=== PATIENT | female | born 1960 | race Hispanic/Latino ===

== ENCOUNTER 2017-05-13 23:29 | Emergency (ER) | payer OTHER ==
[2017-05-14 00:03] LABS: Bilirubin Negative (Negative); Blood, Urine Negative (Negative); Glucose, Urine (Dipstick) 500 mg/dL (Negative); Ketone, Urine Trace mg/dL (Negative); Nitrite Negative (Negative); Protein, Urine (Dipstick) Trace mg/dL (Neg-Trace)
[2017-05-14 00:32] LABS: #Eosinphils 0.1 thou/uL (0.0-0.7); #Lymphocytes 0.8 thou/uL (1.20-3.40); #Monocytes 0.4 thou/uL (0.11-0.59); #Neutrophils 6.3 thou/uL (1.40-6.50); %Basophils 0.2 % (0.0-1.0); %Eosinophils 1.3 % (0.0-10.0); %Lymphocytes 10.6 % (21.0-51.0); %Monocytes 5.7 % (0.0-10.0); Hematocrit 43.6 % (36.0-47.0); Mean Platelet Volume 8.8 fL (7.4-10.4); Red Blood Cell (RBC) Count 4.77 mill/uL (4.20-5.40); White Blood Cell (WBC) Count 7.7 thou/uL (4.8-10.8)
[2017-05-14] MEDS ORDERED: Ondansetron HCl/PF 4 MG/2 ML Vial ONE (00:32)
[2017-05-14 00:34] LABS: ALT (SGPT) 22 U/L (8-55); AST (SGOT) 18 U/L (5-34); Alkaline Phosphatase 151 U/L (40-150); Anion Gap 14 mmol/L (10-20); BUN (Urea Nitrogen) 13 mg/dL (9.8-20.1); Bilirubin, Total 0.5 mg/dL (0.2-1.2); Calc. Creatinine Clearance 0 mL/min (70-130); Calcium 8.6 mg/dL (7.8-10.44); Carbon Dioxide 25 mmol/L (22-29); Chloride 99 mmol/L (98-107); Estimated GFR-MDRD Greater than 90; Globulin 2.9 g/dL (2.4-3.5); Protein, Total 6.6 g/dL (6.0-8.3)
== END 2017-05-14 01:42 | disposition home or self-care (01) ==
LOC: ERS 23:29
DX: R10.13 Epigastric pain (principal); R11.10 Vomiting, unspecified; E11.9 Type 2 diabetes mellitus without complications; K21.9 Gastro-esophageal reflux disease without esophagitis; I50.9 Heart failure, unspecified
CPT/HCPCS: 80053; 81003; 83690; 85025; 93005; 96361; 96374; J2405

== ENCOUNTER 2017-05-14 03:44 | Emergency (ER) | payer OTHER ==
[2017-05-14] MEDS ORDERED: Ketorolac Tromethamine 30 MG/ML VIAL ONE (04:21)
== END 2017-05-14 05:32 | disposition home or self-care (01) ==
LOC: ERS 03:44
DX: R11.2 Nausea with vomiting, unspecified (principal); R10.84 Generalized abdominal pain; K21.9 Gastro-esophageal reflux disease without esophagitis; I50.9 Heart failure, unspecified; E11.9 Type 2 diabetes mellitus without complications; Z79.899 Other long term (current) drug therapy
CPT/HCPCS: 96361; 96372; 96374; J1885

== ENCOUNTER 2017-07-01 06:21 | Emergency (ER) | payer OTHER ==
[2017-07-01 07:08] LABS: #Eosinphils 0.1 thou/uL (0.0-0.7); #Lymphocytes 1.9 thou/uL (1.20-3.40); #Monocytes 0.6 thou/uL (0.11-0.59); #Neutrophils 8.3 thou/uL (1.40-6.50); %Basophils 0.2 % (0.0-1.0); %Eosinophils 1.1 % (0.0-10.0); %Lymphocytes 17.5 % (21.0-51.0); %Monocytes 5.8 % (0.0-10.0); %Neutrophils 75.4 % (42.0-75.0); Hemoglobin 13.8 g/dL (12.0-16.0); Mean Corpuscular HGB CONC 33.2 g/dL (32.0-36.0); Mean Corpuscular Hemoglobin 29.9 pg (27.0-31.0); Mean Corpuscular Volume 90.1 fl (81.0-99.0); Mean Platelet Volume 8.4 fL (7.4-10.4); Platelet Count 242 thou/uL (130-400); RBC Distribution Width 12.6 % (11.5-14.5); Red Blood Cell (RBC) Count 4.61 mill/uL (4.20-5.40); White Blood Cell (WBC) Count 10.9 thou/uL (4.8-10.8)
[2017-07-01 07:15] LABS: ALT (SGPT) 15 U/L (8-55); AST (SGOT) 9 U/L (5-34); Albumin 3.7 g/dL (3.5-5.0); Alkaline Phosphatase 142 U/L (40-150); Anion Gap 13 mmol/L (10-20); BUN (Urea Nitrogen) 8 mg/dL (9.8-20.1); Bilirubin, Total 0.6 mg/dL (0.2-1.2); Calc. Creatinine Clearance 0 mL/min (70-130); Calcium 9.4 mg/dL (7.8-10.44); Carbon Dioxide 25 mmol/L (22-29); Chloride 100 mmol/L (98-107); Estimated GFR-MDRD 87; Globulin 3.5 g/dL (2.4-3.5); Glucose 363 mg/dL (70-105); Potassium 4.2 mmol/L (3.5-5.1); Protein, Total 7.2 g/dL (6.0-8.3); Sodium 134 mmol/L (136-145)
== END 2017-07-01 07:50 | disposition home or self-care (01) ==
LOC: ERS 06:21
DX: J11.1 Influenza due to unidentified influenza virus with other respiratory manifestations (principal); I50.9 Heart failure, unspecified; E11.9 Type 2 diabetes mellitus without complications; K21.9 Gastro-esophageal reflux disease without esophagitis; Z79.899 Other long term (current) drug therapy
CPT/HCPCS: 36415; 80053; 85025; 99284

== ENCOUNTER 2018-03-10 14:18 | Observation (INO) | payer OTHER ==
[2018-03-10] MEDS ORDERED: ISOVUE-370 76%-LOCM 1 ML ONE (14:42)
[2018-03-10 15:06] LABS: #Eosinphils 0.1 thou/uL (0.0-0.7); #Lymphocytes 0.6 thou/uL (1.20-3.40); #Monocytes 0.3 thou/uL (0.11-0.59); #Neutrophils 6.9 thou/uL (1.40-6.50); %Eosinophils 0.7 % (0.0-10.0); %Lymphocytes 7.7 % (21.0-51.0); %Neutrophils 87.7 % (42.0-75.0); Hemoglobin 15.2 g/dL (12.0-16.0); Mean Corpuscular HGB CONC 32.9 g/dL (32.0-36.0); Mean Corpuscular Hemoglobin 29.5 pg (27.0-31.0); Mean Corpuscular Volume 89.5 fL (78.0-98.0); Mean Platelet Volume 9.6 fL (7.4-10.4); Platelet Count 172 thou/uL (130-400); RBC Distribution Width 12.8 % (11.5-14.5); Red Blood Cell (RBC) Count 5.15 mill/uL (4.20-5.40); White Blood Cell (WBC) Count 7.8 thou/uL (4.8-10.8)
[2018-03-10 15:30] LABS: ALT (SGPT) 14 U/L (8-55); AST (SGOT) 12 U/L (5-34); Albumin 4.1 g/dL (3.5-5.0); Alkaline Phosphatase 139 U/L (40-150); Anion Gap 16 mmol/L (10-20); BUN (Urea Nitrogen) 10 mg/dL (9.8-20.1); Bilirubin, Total 0.7 mg/dL (0.2-1.2); Calc. Creatinine Clearance 0 mL/min (70-130); Calcium 8.7 mg/dL (7.8-10.44); Carbon Dioxide 21 mmol/L (22-29); Chloride 103 mmol/L (98-107); Estimated GFR-MDRD Greater than 90; Globulin 2.9 g/dL (2.4-3.5); Glucose 302 mg/dL (70-105); Potassium 4.2 mmol/L (3.5-5.1); Sodium 136 mmol/L (136-145)
[2018-03-10 15:33] LABS: CKMB 1.1 ng/mL (0-6.6); Troponin I Less than 0.010 ng/mL (< 0.028)
[2018-03-10] MEDS ORDERED: Morphine 4 MG/ML VIAL ONE ×2 (15:34→17:28)
[2018-03-10] MEDS ORDERED: Ondansetron HCl/PF 4 MG/2 ML Vial ONE ×2 (15:34→17:29)
--- NOTE | 2018-03-10 15:47 | RAD ---
PORTABLE CHEST: 03/10/2018 PROVIDED CLINICAL HISTORY: Nausea and vomiting. COMPARISON: 11/20/2016 FINDINGS: The cardiac and mediastinal silhouette are within normal limits. No focal consolidation, pleural flu id, or pneumothorax apparent. IMPRESSION: No evidence for an acute cardiopulmonary process. POS: [facility]
--- NOTE | 2018-03-10 15:56 | CT ---
CT CHEST AND ABDOMEN WITH IV CONTRAST: 03/10/2018 PROVIDED CLINICAL HISTORY: Nausea and vomiting and arm and leg pain. FINDINGS: There is no evidence for aortic dissection. The heart, pericardium, and great vessels demonstrate an unremarkable CT appearance for the phase of contrast in which the study was acquired. The lungs are free of suspicious opacity. The airway appears patent and of normal caliber. No evidence for thora cic lymph node enlargement. No pleural fluid or pneumothorax apparent. Diffuse fatty infiltration of the liver. Right adrenal myelolipoma. No bowel dilatation, inflammato ry fat stranding, free fluid, or free air apparent. Sigmoid colonic diverticulosis. Left inferior v entral abdominal hernia, containing nondilated small bowel and a wide neck, is again demonstrated. The osseous structures demonstrate no concerning osteoblastic or osteolytic lesions. IMPRESSION: No evidence for an acute process. Chronic findings as above. POS: [facility]
--- NOTE | 2018-03-10 18:29 | ULT ---
BILATERAL LOWER EXTREMITY VENOUS DOPPLER ULTRASOUND: HISTORY: Lower extremity burning sensation and edema. COMPARISON: None. TECHNIQUE: Real-time herndon-scale color Doppler and spectral analysis of the bilateral lower extremity venous syst em was performed. The common femoral, femoral, proximal portion of the greater saphenous, and the de ep femoral veins, as well as the popliteal and posterior tibial veins are interrogated. FINDINGS: Normal flow, augmentation, and compression. IMPRESSION: No deep venous thrombosis. POS: [facility]
[2018-03-10] MEDS ORDERED: Promethazine HCl 25 MG/ML VIAL ONE (18:57)
[2018-03-10] MEDS ORDERED: Acetaminophen 500 MG TAB ONE (18:57)
[2018-03-10 20:02] LABS: Troponin I Less than 0.010 ng/mL (< 0.028)
[2018-03-10] MEDS ORDERED: Ondansetron HCl/PF 4 MG/2 ML Vial IVP PRN (21:20)
[2018-03-10] MEDS ORDERED: Dextrose 50% Abboject 50 ML SYRINGE SLOW IVP PRN (21:43)
[2018-03-10] MEDS ORDERED: Dextrose 5% in Water 1,000 ML IV PRN (21:43)
[2018-03-11] MEDS: Acetaminophen 325 MG TAB PO PRN ×3 (02:57→18:54)
[2018-03-11 04:37] LABS: Hemoglobin A1c 11.7 % (4.0-6.0)
[2018-03-11 04:40] LABS: #Lymphocytes 0.7 thou/uL (1.20-3.40); #Monocytes 0.4 thou/uL (0.11-0.59); #Neutrophils 3.8 thou/uL (1.40-6.50); %Basophils 0.1 % (0.0-1.0); %Lymphocytes 13.5 % (21.0-51.0); %Monocytes 7.4 % (0.0-10.0); %Neutrophils 78.1 % (42.0-75.0); Hemoglobin 13.2 g/dL (12.0-16.0); Mean Corpuscular HGB CONC 34.1 g/dL (32.0-36.0); Mean Corpuscular Hemoglobin 30.7 pg (27.0-31.0); Mean Corpuscular Volume 89.9 fL (78.0-98.0); Mean Platelet Volume 9.1 fL (7.4-10.4); Platelet Count 148 thou/uL (130-400); RBC Distribution Width 12.9 % (11.5-14.5); Red Blood Cell (RBC) Count 4.29 mill/uL (4.20-5.40); White Blood Cell (WBC) Count 4.9 thou/uL (4.8-10.8)
[2018-03-11 04:51] LABS: Anion Gap 14 mmol/L (10-20); BUN (Urea Nitrogen) 7 mg/dL (9.8-20.1); Calc. Creatinine Clearance 200 mL/min (70-130); Calcium 8.2 mg/dL (7.8-10.44); Carbon Dioxide 20 mmol/L (22-29); Chloride 104 mmol/L (98-107); Estimated GFR-MDRD Greater than 90; Glucose 239 mg/dL (70-105); Potassium 3.7 mmol/L (3.5-5.1); Sodium 134 mmol/L (136-145)
[2018-03-11] MEDS: HumaLOG 300 UNITS/3 ML VIAL SC PRN ×3 (06:21→17:15)
[2018-03-11] MEDS ORDERED: Temazepam 15 MG CAP PO PRN (07:45)
[2018-03-11] MEDS ORDERED: HYDROcodone/Acetaminophen 5/325 mg Tablet PO PRN (07:45)
[2018-03-11] MEDS ORDERED: Diabetic Tussin 200 MG/10 ML UDCUP PO PRN (07:45)
[2018-03-11] MEDS ORDERED: Sodium Chloride 0.65% Nasal 44 ML BOT EA NARE PRN (07:45)
[2018-03-11] MEDS ORDERED: hydrALAZINE 20 MG/ML VIAL SLOW IVP PRN (07:45)
[2018-03-11] MEDS ORDERED: Metoclopramide HCl 10 MG/2 ML VIAL IVP PRN (07:45)
[2018-03-11] MEDS ORDERED: Loratadine 10 MG TAB PO PRN (07:45)
[2018-03-11] MEDS ORDERED: Artificial Tears 18 DROP/0.9 ML EA EYE PRN (07:45)
[2018-03-11] MEDS ORDERED: Senokot 8.6 MG TAB PO PRN (07:45)
[2018-03-11] MEDS ORDERED: Loperamide HCl 2 MG CAP PO PRN (07:45)
[2018-03-11] MEDS ORDERED: Eucerin (Mineral Oil/Petrolatum,White) 30 gm Jar TOP PRN (07:45)
[2018-03-11] MEDS ORDERED: Chloraseptic Spray 180 ml Bottle PO PRN (07:45)
[2018-03-11] MEDS ORDERED: Mag-Al 1200 mg/1200 mg/30 ML UDCUP PO PRN (07:45)
[2018-03-11] MEDS ORDERED: Milk Of Magnesia 30 ML UDCUP PO PRN (07:45)
[2018-03-11] MEDS: Enoxaparin Sodium 40 MG/0.4 ML SYRINGE SC SCH (08:52)
[2018-03-11] MEDS: Famotidine/PF 20 mg/2ml Vial SLOW IVP SCH ×2 (08:53→19:50)
[2018-03-11] MEDS: Rosuvastatin 10 MG TAB PO SCH (08:53)
[2018-03-11] MEDS: Lisinopril 5 MG TAB PO SCH (08:54)
[2018-03-11] MEDS: Carvedilol 6.25 MG TAB PO SCH (08:54)
--- NOTE | 2018-03-11 10:18 | HP ---
PRIMARY CARE PHYSICIAN: José Aranda M.D. PRIMARY SENIOR ANALYTIC CONSULTANT: Jarett Atwood M.D. CODE STATUS: FULL CODE. TIME OF EVALUATION: 9:00 p.m. CHIEF COMPLAINT: Nausea and vomiting. HISTORY OF PRESENT ILLNESS: This is a 58 years old female patient with past medical history of multiple comorbidities including congestive heart failure, diabetes type 2, GERD, came to the hospital after having severe uncontrolled nausea and vomiting that started since around 8:00 a.m., with no clear triggers , no alleviating factors, the patient also reported some epigastric pain with no specific radiation and also some associated left lower extremity pain; although that pain has been present for the past 3 weeks. She denies any chest pain, any cough, any sputum production. No alleviating factors with medications in the ER. REVIEW OF SYSTEMS: Constitutional: No fever. The patient feels occasionally hot flashes and chills, generalized weakness. Respiratory: No cough, sputum production or shortness of breath. Cardiovascular: No chest pain or palpitations. Gastrointestinal: Epigastric pain, nausea, vomiting. No diarrhea. INSPECTOR CIRCUITRY NEGATIVE: The patient reporting some headache, no neck stiffness. Not feeling lightheaded. Genitourinary: No burning with urination. Extremities: No leg swelling. Left lower extremity pain. All other systems were reviewed and are negative except for the findings as mentioned above. PAST MEDICAL HISTORY: As mentioned in the HPI. PAST SURGICAL HISTORY: Positive for pituitary tumor removal, diverticulitis, cholecystectomy, , hysterectomy, and lumpectomy. PSYCHIATRIC HISTORY: No psychiatric history. SOCIAL HISTORY: Lives with family at home. No smoking, no alcohol, no drugs. ALLERGIES: No known drug allergies. REPORTED MEDICATIONS: Crestor, carvedilol, furosemide, and lisinopril. PHYSICAL EXAMINATION: VITAL SIGNS: On presentation, blood pressure 146/84 with heart rate 96, respiratory rate was 20, temperature 99.1, pain was 10/10, oxygen saturation 97 on room air. GENERAL APPEARANCE: The patient is alert and oriented, in mild distress due to symptoms. HEENT: Eyes: Normal conjunctivae. Moist oral mucosa. Anicteric. NECK: No JVD. RESPIRATORY: Bilateral air entry. No rales or wheezes. Symmetric expansion. CARDIOVASCULAR: The patient has sinus tachycardia that is mild, in the one- teens, regular rhythm, sinus on the monitor. No murmurs, no gallop, no edema. ABDOMEN: Soft, mildly tender in the epigastric area. Normal bowel sounds. MUSCULOSKELETAL: Baseline range of motion and strength. No tenderness except for the left lower extremity. She has some tenderness in the entire limb with no swelling, no redness, mildly decreased range of motion due to that pain. SKIN: Warm and intact. No pallor, no rash or redness. Peripheral pulses are present. Capillary refill seems to be intact. NEUROLOGIC: Baseline sensory, no evidence of any new focal weakness. Baseline speech. Cranial nerves seem to be intact. PSYCHIATRIC: The patient is in good mood, no anxiety, oriented, and optimal judgment. IMAGING: EKG was reviewed. The patient has sinus tachycardia with left axis deviation, low voltage QRS, likely due to patient's obesity, ventricular rate was 108 with OR of 152, QRS 88, QT corrected 452. Radiology report, the chest x -ray was done. The patient had no evidence of any acute cardiopulmonary process. The CT dissection was done. The patient has no evidence of any acute process. DVT studies were negative. LABORATORY DATA: Reviewed. The patient has a white count of 7.8, hemoglobin 15.2, MCV 89.5, platelet count 172. Sodium 136, potassium 4.2, chloride 103, carbon dioxide 21, anion gap 16, BUN 10, creatinine 0.6, GFR greater than 90. Glucose 302, calcium 8.7, total bilirubin 0.7, AST 12, ALT 14, alkaline phosphatase 139. Troponin less than 0.010 x2. Serum total protein 7.0, albumin 4.1, globulin 2.9, albumin globulin ratio is 1.4. ASSESSMENT AND PLAN: The patient will be placed in the hospital with the following medical problem. 1. Severe nausea and vomiting, presented since 9.00 a.m., no clear etiology. The patient had uncontrolled diabetes, the differential most likely possibility is diabetic gastroparesis, we will treat symptomatically, lipase is pending. Pancreatitis could be a second possible etiology. CT abdomen did not show any inflammation of the pancreas, we will optimize diabetes control. Monitor the patient overnight, we will treat accordingly depending on workup result. 2. The patient is obese, advised to lose weight. 3. Headache that started this evening, there is no neck stiffness, no fever, no white count, no evidence to point to any infection of central nervous system at this point. We will send procalcitonin and we will adjust treatment accordingly. 4. Deep venous thrombosis prophylaxis. 5. Sinus tachycardia, likely secondary to acute physical distress, we will treat the pain, we will treat the nausea and vomiting, we will adjust the treatment as needed. 6. History of congestive heart failure, which is chronic, seems to be stable at this point. Reconcile home medications. 7. Gastroesophageal reflux disease, we will place the patient on Pepcid b.i.d. MTDD
--- NOTE | 2018-03-11 11:12 | PDOC.PN ---
- Subjective Encounter Start Date: 03/11/18 Encounter Start Time: 07:50 -: old records requested/rev Patient seen and examined. No new complaints. No overnight events - Objective Resuscitation Status: Resuscitation Status FULL:Full Resuscitation MAR Reviewed: Yes Vital Signs & Weight: Vital Signs (12 hours) Temp Pulse Resp BP BP Pulse Ox 03/11/18 07:46 98.2 F 84 18 123/64 94 L 03/11/18 02:57 91 18 140/67 95 Weight Weight 257 lb Result Diagrams: 03/11/18 03:34 03/11/18 03:34 Additional Labs: Accuchecks 03/11/18 03/11/18 03/10/18 10:44 06:17 22:26 POC Glucose 285 H 252 H 279 H Radiology Reviewed by me: Yes EKG Reviewed by me: Yes Phys Exam - Physical Examination Constitutional: NAD HEENT: PERRLA, moist MMs, sclera anicteric Neck: no JVD, supple Respiratory: no wheezing, no rales, no rhonchi Cardiovascular: RRR, no significant murmur, no rub Gastrointestinal: soft, non-tender, no distention, positive bowel sounds obesity+ Musculoskeletal: no edema, pulses present Neurological: non-focal, normal sensation, moves all 4 limbs Psychiatric: normal affect, A&O x 3 Skin: no rash, normal turgor Dx/Plan (1) Intractable nausea and vomiting Code(s): R11.2 - NAUSEA WITH VOMITING, UNSPECIFIED Status: Acute (2) Chronic stage c diastolic heart failure Code(s): I50.32 - CHRONIC DIASTOLIC (CONGESTIVE) HEART FAILURE Status: Chronic (3) Diabetes type 2, controlled Code(s): E11.9 - TYPE 2 DIABETES MELLITUS WITHOUT COMPLICATIONS Status: Chronic (4) Diabetic gastroparesis Code(s): E11.43 - TYPE 2 DIABETES W DIABETIC AUTONOMIC (POLY)NEUROPATHY; K31.84 - GASTROPARESIS Status: Chronic (5) Dyslipidemia Code(s): E78.5 - HYPERLIPIDEMIA, UNSPECIFIED Status: Chronic (6) Hypertension Code(s): I10 - ESSENTIAL (PRIMARY) HYPERTENSION Status: Chronic (7) Morbid obesity with BMI of 45.0-49.9, adult Code(s): E66.01 - MORBID (SEVERE) OBESITY DUE TO EXCESS CALORIES; Z68.42 - BODY MASS INDEX (BMI) 45.0-49.9, ADULT Status: Chronic - Plan cont current plan of care, plan discussed w/ family * add glyburide 5 mg po daily and metformin 1000 mg po bid * medication reviewed as below * symptomatic treatment * consult dietary for diabetic education * expecting discharge tomorrow morning. Review of Systems - Review of Systems Eyes: negative: Pain, Vision Change, Conjunctivae Inflammation, Eyelid Inflammation, Redness, Other ENT: negative: Ear Pain, Ear Discharge, Nose Pain, Nose Discharge, Nose Congestion, Mouth Pain, Mouth Swelling, Throat Pain, Throat Swelling, Other Respiratory: negative: Cough, Dry, Shortness of Breath, Hemoptysis, SOB with Excertion, Pleuritic Pain, Sputum, Wheezing Cardiovascular: negative: chest pain, palpitations, orthopnea, paroxysmal nocturnal dyspnea, edema, light headedness, other Gastrointestinal: negative: Nausea, Vomiting, Abdominal Pain, Diarrhea, Constipation, Melena, Hematochezia, Other Genitourinary: negative: Dysuria, Frequency, Incontinence, Hematuria, Retention , Other Musculoskeletal: negative: Neck Pain, Shoulder Pain, Arm Pain, Back Pain, Hand Pain, Leg Pain, Foot Pain, Other Skin: negative: Rash, Lesions, William, Bruising, Other - Medications/Allergies Allergies/Adverse Reactions: Allergies Allergy/AdvReac Type Severity Reaction Status Date / Time No Known Allergies Allergy Verified 03/10/18 22:16 Medications: Current Medications Acetaminophen (Tylenol) 650 mg PO Q4H PRN PRN Reason: Headache/Fever or Pain Last Admin: 03/11/18 09:10 Dose: 650 mg Hydrocodone Bitart/Acetaminophen ([place] 5/325) 1 tab PO Q4H PRN PRN Reason: Moderate Pain (4-6) Al Hydroxide/Mg Hydroxide (Maalox) 15 ml PO Q4H PRN PRN Reason: Heartburn or Indigestion Artificial Tears (Tears Naturale) 0 drop EA EYE PRN PRN PRN Reason: Dry Eyes Carvedilol (Coreg) 6.25 mg PO DAILY [facility] Last Admin: 03/11/18 08:54 Dose: 6.25 mg Dextrose/Water (Dextrose 50%) 25 gm SLOW IVP PRN PRN PRN Reason: Hypoglycemia Enoxaparin Sodium (Lovenox) 40 mg SC 0900 [facility] Last Admin: 03/11/18 08:52 Dose: 40 mg Famotidine (Pepcid) 20 mg SLOW IVP Q12HR [facility] Last Admin: 03/11/18 08:53 Dose: 20 mg Glucagon (Glucagon) 1 mg IM PRN PRN PRN Reason: Hypoglycemia Guaifenesin (Robitussin Sf) 200 mg PO Q4H PRN PRN Reason: Cough Hydralazine HCl (Apresoline) 10 mg SLOW IVP Q4H PRN PRN Reason: Systolic BP > 180 Dextrose/Water (D5w) 1,000 mls @ 0 mls/hr IV .Q0M PRN PRN Reason: Hypoglycemia Insulin Human Lispro (Humalog) 0 units SC .MILD SLIDING SCALE PRN PRN Reason: Mild Correctional Scale Last Admin: 03/11/18 06:21 Dose: 4 unit Lisinopril (Zestril) 5 mg PO DAILY [facility] Last Admin: 03/11/18 08:54 Dose: 5 mg Loperamide HCl (Imodium) 2 mg PO PRN PRN PRN Reason: Diarrhea/Loose Stools Loratadine (Claritin) 10 mg PO DAILYPRN PRN PRN Reason: Sinus Symptoms Magnesium Hydroxide (Milk Of Magnesium) 30 ml PO DAILYPRN PRN PRN Reason: Constipation Metoclopramide HCl (Reglan) 5 mg IVP Q4H PRN PRN Reason: Nausea Mineral Oil/White Petrolatum (Eucerin Cream) 0 gm TOP BIDPRN PRN PRN Reason: Dry Skin Ondansetron HCl (Zofran) 4 mg IVP Q6H PRN PRN Reason: Nausea/Vomiting Last Admin: 03/11/18 02:57 Dose: 4 mg Ondansetron HCl (Zofran Odt) 4 mg PO Q6H PRN PRN Reason: Nausea/Vomiting Phenol (Chloraseptic [place] 180 Ml Bot) 0 ml PO PRN PRN PRN Reason: Sore Throat Rosuvastatin Calcium (Crestor) 10 mg PO DAILY [facility] Last Admin: 03/11/18 08:53 Dose: 10 mg Senna (Senokot) 2 tab PO HSPRN PRN PRN Reason: Constipation Sodium Chloride ([place] Nasal [place] 0.65%) 0 ml EA NARE QIDPRN PRN PRN Reason: Nasal Congestion Temazepam (Restoril) 15 mg PO HSPRN PRN PRN Reason: Insomnia
[2018-03-11] MEDS ORDERED: glyBURIDE 5 MG TAB PO SCH (11:30)
[2018-03-11] MEDS: metFORMIN 500 MG TAB PO SCH (17:15)
[2018-03-11] MEDS: Ondansetron ODT 4 MG TAB PO PRN (18:54)
[2018-03-12 00:29] VITALS: TEMP 98.1
[2018-03-12] MEDS: Ondansetron ODT 4 MG TAB PO PRN (06:00)
[2018-03-12] MEDS: HumaLOG 300 UNITS/3 ML VIAL SC PRN (06:00)
[2018-03-12] MEDS ORDERED: glyBURIDE 5 MG TAB PO SCH (08:00)
[2018-03-12 08:06] VITALS: BP 138/67
[2018-03-12] MEDS: Carvedilol 6.25 MG TAB PO SCH (08:56)
[2018-03-12] MEDS: metFORMIN 500 MG TAB PO SCH (08:56)
[2018-03-12] MEDS: Lisinopril 5 MG TAB PO SCH (08:57)
[2018-03-12] MEDS: Enoxaparin Sodium 40 MG/0.4 ML SYRINGE SC SCH (08:57)
[2018-03-12] MEDS: Rosuvastatin 10 MG TAB PO SCH (08:57)
[2018-03-12] MEDS: Famotidine/PF 20 mg/2ml Vial SLOW IVP SCH (08:58)
--- NOTE | 2018-03-12 10:28 | DIS ---
DATE OF ADMISSION: 03/10/2018 DATE OF DISCHARGE: 03/12/2018 PRIMARY CARE PHYSICIAN: Dr. José Aranda. DISCHARGE DISPOSITION: Home. PRIMARY DISCHARGE DIAGNOSES: New onset diabetes type 2, nausea and vomiting. SECONDARY DISCHARGE DIAGNOSES: Chronic diastolic stage C heart failure, diabetes type 2, diabetic ga stroparesis, dyslipidemia, hypertension, morbid obesity with body mass index of 46. PRIMARY PROCEDURES/OPERATIONS: None. RADIOLOGICAL INVESTIGATION: Chest x-ray normal. CT dissection was negative. Ultrasound negative fo r any DVT. SIGNIFICANT LABORATORY DATA: WBC 4.9, hemoglobin 13.2, platelet 148. Hemoglobin A1c 11.7. Sodium 1 34, potassium 3.7, BUN 7, creatinine 0.57, calcium 8.2. LFT normal. Cardiac enzymes negative. Proc alcitonin 0.11 and lipase 19. DISCHARGE MEDICATIONS: Coreg 6.25 mg p.o. daily, Lasix 20 mg p.o. daily, lisinopril 5 mg p.o. daily, Crestor 10 mg p.o. daily, Zofran 4 mg q.6 hourly p.r.n., Pepcid 20 mg p.o. b.i.d., Diabeta 5 mg p.o. daily, metformin 1000 mg p.o. b.i.d. CONTRAINDICATIONS: None. CODE STATUS: FULL CODE. INPATIENT CONSULTANTS: None. ALLERGIES: No known drug allergy. DISCHARGE PLAN: Post hospital, patient is instructed to follow up with primary care physician in 1 w [place]. HOSPITAL COURSE: A 58-year-old female with above-mentioned medical problem who was admitted by Dr. Malina martinez. Please see his H&P for further details. Patient was admitted for nausea and vomiting. Thi s patient was found with hyperglycemia. Her hemoglobin A1c was found 11.7. This patient was not on any specific diabetic medication. We provided diabetes education and dietary consult was placed for diabetic diet education. This patient was treated symptomatically with Zofran. She was given IV flu id. Patient's blood sugar was also started improving. Her nausea and vomiting was controlled with m edication. We resumed all her previous home medication while in hospital. On discharge for diabetes , we added glyburide and metformin. Rest of medication will continue as per previous. The patient is seen and examined at bedside today. Review of systems reviewed and negative. Her vitals are normal. Her physical examination is unchang ed. All new medication prescription sent to her pharmacy. The patient is medically stable for discharge today.
--- NOTE | 2018-03-16 13:21 | EKG ---
Test Reason : Blood Pressure : / mmHG Vent. Rate : 097 BPM Atrial Rate : 097 BPM P-R Int : 142 ms QRS Dur : 088 ms QT Int : 360 ms P-R-T Axes : -06 -47 023 degrees QTc Int : 457 ms Normal sinus rhythm Left anterior fascicular block Abnormal ECG Confirmed by MARCELINA DENNIS ([id number]), news videotape editor MARIJA MCQUEEN ([id number] on 03/16/2018 1:21:13 PM Referred By: Confirmed By:MARCELINA DENNIS
== END 2018-03-12 10:43 | disposition home or self-care (01) ==
LOC: ERS 14:18 → 2SW 20:15
PROVIDERS: ADMIT Hospitalist; ATTEND Hospitalist
DX: R11.2 Nausea with vomiting, unspecified (principal); R10.13 Epigastric pain; R00.0 Tachycardia, unspecified; K21.9 Gastro-esophageal reflux disease without esophagitis; I11.0 Hypertensive heart disease with heart failure; I50.32 Chronic diastolic (congestive) heart failure; E11.43 Type 2 diabetes mellitus with diabetic autonomic (poly)neuropathy; K31.84 Gastroparesis; E78.5 Hyperlipidemia, unspecified; E66.01 Morbid (severe) obesity due to excess calories; Z68.42 Body mass index [BMI] 45.0-49.9, adult; Z79.899 Other long term (current) drug therapy; Z98.890 Other specified postprocedural states
CPT/HCPCS: 36415; 36416; 71045; 71275; 80048; 80053; 82553; 83036; 83690; 84145; 84484; 85025; 93005; 93970; 96361; 96372; 96374; 96375; 96376; G0378; J1650; J2270; J2405; J2550; Q0162; S0028

== ENCOUNTER 2018-09-09 11:06 | Emergency (ER) | payer OTHER ==
[2018-09-09 12:04] LABS: #Basophils 0.1 thou/uL (0.0-0.2); #Lymphocytes 0.3 thou/uL (1.20-3.40); #Monocytes 0.2 thou/uL (0.11-0.59); #Neutrophils 7.8 thou/uL (1.40-6.50); %Basophils 1.2 % (0.0-1.0); %Eosinophils 0.1 % (0.0-10.0); %Lymphocytes 3.6 % (21.0-51.0); %Monocytes 2.6 % (0.0-10.0); %Neutrophils 92.5 % (42.0-75.0); Hemoglobin 14.5 g/dL (12.0-16.0); Mean Corpuscular HGB CONC 33.1 g/dL (32.0-36.0); Mean Corpuscular Volume 87.7 fL (78.0-98.0); Mean Platelet Volume 9.3 fL (7.4-10.4); Platelet Count 209 thou/uL (130-400); RBC Distribution Width 12.8 % (11.5-14.5); Red Blood Cell (RBC) Count 4.98 mill/uL (4.20-5.40); White Blood Cell (WBC) Count 8.5 thou/uL (4.8-10.8)
[2018-09-09 12:17] LABS: ALT (SGPT) 17 U/L (8-55); AST (SGOT) 11 U/L (5-34); Albumin 4.2 g/dL (3.5-5.0); Alkaline Phosphatase 120 U/L (40-150); Anion Gap 16 mmol/L (10-20); BUN (Urea Nitrogen) 15 mg/dL (9.8-20.1); Bilirubin, Total 0.5 mg/dL (0.2-1.2); Calc. Creatinine Clearance 0 mL/min (70-130); Calcium 9.4 mg/dL (7.8-10.44); Carbon Dioxide 25 mmol/L (22-29); Chloride 98 mmol/L (98-107); Estimated GFR-MDRD 75; Globulin 2.7 g/dL (2.4-3.5); Glucose 377 mg/dL (70-105); Lipase 11 U/L (8-78); Protein, Total 6.9 g/dL (6.0-8.3); Sodium 135 mmol/L (136-145)
[2018-09-09] MEDS ORDERED: Ondansetron PF 4 MG/2 ML Vial ONE ×2 (14:20→16:02)
[2018-09-09] MEDS ORDERED: Acetaminophen 500 MG TAB ONE (14:30)
[2018-09-09 15:27] LABS: Bilirubin Negative (Negative); Blood, Urine Negative (Negative); Glucose, Urine (Dipstick) 500 mg/dL (Negative); Leukocyte Negative (Negative); Nitrite Positive (Negative); Protein, Urine (Dipstick) Negative (Neg-Trace)
[2018-09-09 15:30] LABS: Clarity CLEAR (Clear)
[2018-09-09 15:38] LABS: Bacteria/HPF 1+ HPF (None Seen); Hyaline Casts/LPF NONE SEEN LPF (0-3 Hyaline); RBC/HPF None Seen HPF (0-3); Squamous Epithelial 0-3 HPF (0-3); WBC/HPF 0-3 HPF (0-3)
--- NOTE | 2018-09-09 15:50 | RAD ---
CHEST 1 VIEW: Date: 09/09/18 COMPARISON: 03/10/18. HISTORY: Pain. FINDINGS: Normal cardiac silhouette. Pulmonary vessels and hilum are normal. Costophrenic angles are clear. No masses or consolidation. No pneumothorax or osseous abnormalities. IMPRESSION: No acute cardiopulmonary process. POS: [facility]
[2018-09-09] MEDS ORDERED: cefTRIAXone\\ROCEPHIN 1 GM VIAL ONE (15:55)
[2018-09-09] MEDS ORDERED: diphenhydrAMINE 50 MG/ML VIAL ONE (17:42)
[2018-09-09] MEDS ORDERED: Ketorolac Tromethamine 30 MG/ML VIAL ONE (17:42)
[2018-09-09] MEDS ORDERED: Metoclopramide HCl 10 MG/2 ML VIAL ONE (17:42)
== END 2018-09-09 18:55 | disposition home or self-care (01) ==
LOC: ERS 11:06
DX: R11.2 Nausea with vomiting, unspecified (principal); R51 Headache; N39.0 Urinary tract infection, site not specified; E11.9 Type 2 diabetes mellitus without complications; K21.9 Gastro-esophageal reflux disease without esophagitis; Z79.899 Other long term (current) drug therapy; Z79.84 Long term (current) use of oral hypoglycemic drugs
CPT/HCPCS: 36415; 36416; 71045; 80053; 81003; 81015; 82010; 82550; 83690; 83880; 84484; 85025; 96361; 96374; 96375; 96376; J0696; J1200; J1885; J2405; J2765

== ENCOUNTER 2020-01-03 16:37 | Emergency (ER) | payer OTHER ==
[2020-01-03] MEDS ORDERED: diphenhydrAMINE 50 MG/ML VIAL ONE (17:22)
[2020-01-03] MEDS ORDERED: Metoclopramide HCl 10 MG/2 ML VIAL ONE (17:22)
[2020-01-03] MEDS ORDERED: Ondansetron PF 4 MG/2 ML Vial ONE ×2 (17:22→19:39)
[2020-01-03 17:52] LABS: #Lymphocytes 1.2 thou/uL (1.20-3.40); #Monocytes 0.2 thou/uL (0.11-0.59); %Basophils 0.1 % (0.0-1.0); %Eosinophils 0.4 % (0.0-10.0); %Lymphocytes 18.1 % (21.0-51.0); %Monocytes 3.3 % (0.0-10.0); %Neutrophils 78.2 % (42.0-75.0); Hemoglobin 13.7 g/dL (12.0-16.0); Mean Corpuscular HGB CONC 32.8 g/dL (32.0-36.0); Mean Corpuscular Hemoglobin 28.8 pg (27.0-31.0); Mean Platelet Volume 10.2 fL (7.4-10.4); Platelet Count 157 thou/uL (130-400); RBC Distribution Width 12.9 % (11.5-14.5); Red Blood Cell (RBC) Count 4.76 mill/uL (4.20-5.40); White Blood Cell (WBC) Count 6.4 thou/uL (4.8-10.8)
[2020-01-03 18:06] LABS: ALT (SGPT) 17 U/L (8-55); AST (SGOT) 15 U/L (5-34); Albumin 3.9 g/dL (3.5-5.0); Alkaline Phosphatase 137 U/L (40-110); Anion Gap 14 mmol/L (10-20); BUN (Urea Nitrogen) 7 mg/dL (9.8-20.1); Bilirubin, Total 0.4 mg/dL (0.2-1.2); Calc. Creatinine Clearance 0 mL/min (70-130); Calcium 8.7 mg/dL (7.8-10.44); Carbon Dioxide 28 mmol/L (22-29); Chloride 96 mmol/L (98-107); Estimated GFR-MDRD 76; Globulin 3.1 g/dL (2.4-3.5); Glucose 381 mg/dL (70-105); Potassium 3.8 mmol/L (3.5-5.1); Sodium 134 mmol/L (136-145)
--- NOTE | 2020-01-03 18:24 | RAD ---
PORTABLE UPRIGHT FRONTAL CHEST RADIOGRAPH: 01/03/20 COMPARISON: 09/09/18. HISTORY: COVID positive patient with worsening chest symptoms. FINDINGS: There is perihilar interstitial prominence, left greater than right. Subtle ground glass opacity is s een in the lateral aspect of the mid left lung zone and the lateral aspect of the right upper lobe. H eart and mediastinal contours are stable. IMPRESSION: Subtle interstitial and ground glass opacity consistent with the provided history of COVID pneumonia. POS: [facility]
== END 2020-01-03 19:51 | disposition home or self-care (01) ==
LOC: ERS 16:37
DX: U07.1 COVID-19 (principal); J12.89 Other viral pneumonia; I11.0 Hypertensive heart disease with heart failure; I50.9 Heart failure, unspecified; E11.9 Type 2 diabetes mellitus without complications; K21.9 Gastro-esophageal reflux disease without esophagitis; R11.2 Nausea with vomiting, unspecified; Z79.84 Long term (current) use of oral hypoglycemic drugs; Z79.899 Other long term (current) drug therapy
CPT/HCPCS: 71045; 80053; 84484; 85025; 85379; 93005; 96365; 96375; 96376; J1200; J2405; J2765

== ENCOUNTER 2021-12-28 15:22 | Emergency (ER) | payer OTHER ==
[2021-12-28 15:53] LABS: #Eosinphils 0.1 thou/uL (0.0-0.7); #Lymphocytes 1.7 thou/uL (1.20-3.40); #Monocytes 0.4 thou/uL (0.11-0.59); %Basophils 0.4 % (0.0-1.0); %Lymphocytes 26.9 % (21.0-51.0); %Monocytes 6.2 % (0.0-10.0); %Neutrophils 64.6 % (42.0-75.0); Hemoglobin 12.6 g/dL (12.0-16.0); Mean Corpuscular HGB CONC 33.8 g/dL (32.0-36.0); Mean Corpuscular Hemoglobin 30.6 pg (27.0-31.0); Mean Corpuscular Volume 90.6 fL (78.0-98.0); Mean Platelet Volume 8.7 fL (7.4-10.4); Platelet Count 200 thou/uL (130-400); RBC Distribution Width 12.8 % (11.5-14.5); Red Blood Cell (RBC) Count 4.12 mill/uL (4.20-5.40); White Blood Cell (WBC) Count 6.2 thou/uL (4.8-10.8)
[2021-12-28 16:13] LABS: ALT (SGPT) 16 U/L (8-55); AST (SGOT) 14 U/L (5-34); Albumin 3.8 g/dL (3.5-5.0); Alkaline Phosphatase 109 U/L (40-110); Anion Gap 14 mmol/L (10-20); BUN (Urea Nitrogen) 11 mg/dL (9.8-20.1); Bilirubin, Total 0.4 mg/dL (0.2-1.2); Calc. Creatinine Clearance 0 mL/min (70-130); Calcium 9.2 mg/dL (7.8-10.44); Carbon Dioxide 25 mmol/L (22-29); Chloride 103 mmol/L (98-107); Estimated GFR 93; Globulin 2.9 g/dL (2.4-3.5); Glucose 244 mg/dL (70-105); Lipase 39 U/L (8-78); Potassium 3.9 mmol/L (3.5-5.1); Protein, Total 6.7 g/dL (6.0-8.3); Sodium 138 mmol/L (136-145)
== END 2021-12-28 19:28 | disposition home or self-care (01) ==
LOC: ERS 15:22
DX: R07.89 Other chest pain (principal); I50.9 Heart failure, unspecified; E11.9 Type 2 diabetes mellitus without complications; K21.9 Gastro-esophageal reflux disease without esophagitis
CPT/HCPCS: 36415; 71045; 80053; 83690; 83880; 84484; 85025; 93005; 94760